=== PATIENT | female | born 1990 | race Caucasian/White ===

== ENCOUNTER 2019-11-12 21:26 | Inpatient (IN) | payer OTHER ==
[~2019-11-12] VITALS: Ht 172.7 cm; Wt 92.9 kg
[2019-11-12 22:24] VITALS: BP 133/75
[2019-11-12 22:25] LABS: HEMATOCRIT 38.1 % (36.0-47.0); HEMOGLOBIN 12.8 g/dl (12.0-15.5); MEAN CORPUSCULAR HEMOGLOBIN 30.3 pg (27.0-33.0); MEAN CORPUSCULAR HGB CONC 33.6 g/dl (32.0-36.5); MEAN CORPUSCULAR VOLUME 90.3 fl (80.0-96.0); PLATELET COUNT, AUTOMATED 186 10^3/uL (150-450); RED BLOOD COUNT 4.22 10^6/uL (4.00-5.40); WHITE BLOOD COUNT 12.3 10^3/uL (4.0-10.0)
[2019-11-12] MEDS ORDERED: PRENTAB9 PO (22:25)
[2019-11-12] MEDS ORDERED: OXYTOCIN 30 UNITS IN 0.9% NaCl 500ML IV BAG (J2590) As Ordered ONE (22:26)
[2019-11-12] MEDS ORDERED: LACTATED RINGER'S 1000 ML IV STA (22:28)
[2019-11-12] MEDS ORDERED: LR 1,000 ML IV SCH (22:28)
[2019-11-12 22:59] VITALS: BP 142/89
[2019-11-12 23:07] VITALS: BP 115/57
[2019-11-12 23:22] VITALS: BP 134/62
[2019-11-12 23:37] VITALS: BP 139/61
[2019-11-12] MEDS ORDERED: OXYTOCIN DRIP 30 UNITS in IV 1 EA IV SCH (23:40)
[2019-11-12] MEDS ORDERED: ACETAMINOPHEN TAB 650MG DOSE (2X325MG) PO PRN (23:45)
[2019-11-12] MEDS ORDERED: DIBUCAINE 1% OINTMENT 30GM TOP PRN (23:45)
[2019-11-12] MEDS ORDERED: MEASLES,MUMPS,RUBELLA VACCINE INJ (MMR-II) (90707) SC SCH (23:45)
[2019-11-12] MEDS ORDERED: ACETAMINOPHEN 500 MG TAB PO PRN (23:45)
[2019-11-12] MEDS ORDERED: RHOGAM 300 MCG (1500 IU) INJ (J2790) IM SCH (23:45)
[2019-11-12] MEDS ORDERED: DOCUSATE SODIUM 100 MG CAP PO PRN (23:45)
[2019-11-12] MEDS ORDERED: LIDOCAINE 1% MDV 20ML VIAL INFIL ONE (23:45)
--- NOTE | 2019-11-12 23:47 | DNPDOC ---
[facility] Delivery Note Delivery Note DATE OF DELIVERY: 12 Nov 2019 PREDELIVERY DIAGNOSIS: 38w3d gestation and labor. POST DELIVERY DIAGNOSIS: Delivered. 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 Felicitas Weldon MD ANESTHESIA: 1% lidocaine for repair ESTIMATED BLOOD LOSS: 250 mL. FINDINGS: 8 pound 13 ounce (4000g) male , Score 8/8 DELIVERY SUMMARY: Luz is a 29yo [id number] s/p uncomplicated at 22:53 on 11/12/19 after presenting to L&D in active labor at 38w3d. She was 8/C/-1 on admission, progressed without epidural, had AROM clear and immediately progressed to C/C/+1, at which time she began pushing. Infant's head delivered OA, restituted JERROD. Right anterior shoulder delivered with ease followed by posterior shoulder, then remainder of body delivered to maternal abdomen where infant was dried and stimulated; nose and mouth suctioned with bulb suction, strong, lusty cry, apgars 8/8. Terminal meconium noted. At 2 minutes of life, cord clamped x2 and cut by FOB. With uterine massage and traction on the cord, placenta delivered spontaneously and intact with 3 vessel centrally inserted cord. Pitocin bolus started with delivery of placenta. Fundus then firm at u-2cm with hemostasis noted. Upon inspection of vagina and perineum, small right labial laceration and a very small 2mll were noted and repaired with 3-0 vicryl suture in usual fashion. Good cosmetic effect with total reapproximation and complete hemostasis noted. All counts correct x2. Mom and were doing well when I left the room. MD Shiraz Reyes Katrina D MD November 12, 2019 23:43
[2019-11-12 23:52] VITALS: BP 135/60
--- NOTE | 2019-11-12 23:54 | HPEPDOC ---
Obstetrical History & Physical General Date of Admission November 12, 2019 at 21:55 History of Present Illness Luz is a 29yo with SIUP at 38w3d by LMP c/w 9wk u/s presenting for painful regular ctx that have been getting stronger and closer over the course of the day. No LOF, no vaginal bleeding, good movement. No f/c/n/v/CP/SOB. 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 Past Medical History Medical History Starting BMI 25.7 Surgical History: Other (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 ABDOMEN: Gravid and non-tender to touch. FETUS: Is vertex (VTX) by sterile vaginal examination (SVE) EXTREMITIES: No edema of BLE Laboratory Data 24H LABS Laboratory Tests 2 11/12/19 22:03: Serology Scanned Report Hepatitis B Testing 11/12/19 22:15: Nucleated Red Blood Cells % (auto) 0.0 CBC/BMP Laboratory Tests 11/12/19 22:15 Pertinent Laboratoy Data Blood Type: A+ RBC Antibody Screen: Negative HIV: Negative Hepatitis B: Negative Hepatitis C: Unknown Rapid Plasma Reagin: Nonreactive Rubella: Immune Varicella: Immune Chlamydia/Gonorrhea: Negative Group B Streptococcus: Negative Quad Screen Test: Negative Glucose Tolerance Test: 97 Anatomy Ultrasound Ultrasound Date: Jul 07, 2019 Placenta Location: Posterior Normal Anatomy: Yes Placenta Previa: No Steroid Therapy Steroid Therapy: No Vaginal Examination Dilation: 8 cm Effacement: 100% Station: -1, 0 Cervical Consistency: Soft Cervical Position: Anterior Presentation: Cephalic presentation Assessment Heart Rate (FHR): 150 Variability: Moderate Accelerations: Positive Decelerations: Variable Tocometer Contractions: Yes Frequency: regular, every 2-5 min. Duration: greater than 60 seconds Strength: palpated as strong Assessment/Plan Assessment Luz is a 29yo with SIUP at 38w3d by LMP c/w 9wk u/s in active labor with SCE 8/C/-1, ctx q3-5min. Cephalic. GBS negative. Vitals wnl, exam benign. Pelvis proven to 9+ pounds. Does not desire epidural. Excessive weight gain (41lb), starting BMI 25.7, history of precipitous elevator delivery in Apr 2018 Plan Admit and orient. Industrial Truck Driver and consent. Diet: clear liquids Group B Streptococcus (GBS) negative Labs and intravenous (IV) per unit protocol. Lactated Ringers (LR): Bolus 500 mL, then at 125 mL/hr. Anticipate normal spontaneous delivery () Safe to proceed MD Shiraz Reyes Katrina D MD November 12, 2019 22:41
[2019-11-13 00:39] VITALS: BP 127/64
[2019-11-13] MEDS: IBUPROFEN 800 MG TAB PO PRN ×2 (00:44→09:47)
[2019-11-13 01:20] VITALS: BP 113/60
[2019-11-13 06:00] VITALS: BP 119/63
[2019-11-13] MEDS: PRENATAL VITAMINS CHEWABLE TABLET PO SCH (09:00)
--- NOTE | 2019-11-13 09:50 | IPNPDOC ---
Progress Note Date of Service: November 13, 2019 Day#: 1 Progress Note PPD 1 SUBJECT: Luz is a 29yo [id number] s/p uncomplicated at 38w3d on 11 November at 22:53 after presenting in active labor, doing well day # 1. She has been ambulating, voiding spontaneously without issue and tolerating regular diet. Breast feeding without issue. Minimal discomfort. Reports lochia is like a normal period. No lightheadedness/dizziness, f/c/n/v/CP/SOB. OBJECTIVE: VITAL SIGNS: Within normal limits, afebrile. Alert and oriented times three. Abdomen: Fundus firm at U-2. Soft, NTTP. Extremities: trace edema of BLE, no pain with palpation of calves ASSESSMENT: Luz is a 29yo [id number] s/p uncomplicated at 38w3d on 11 November at 22:53 after presenting in active labor, doing well day # 1. Vitals within normal limits, afebrile, hemodynamically stable with no evidence of infection. PLAN: 1. Routine care 2. Tylenol and Motrin for pain. 3. Encourage breast feeding and ambulation. 4. Regular diet 5. Possible discharge tomorrow if meeting all milestones Dr. Felicitas Weldon MD VS, I&O, 24H, [facility] Vital Signs/I&O Vital Signs Date Time Temp Pulse Resp B/P (MAP) Pulse Ox O2 Delivery O2 Flow Rate FiO2 11/13/19 06:00 97.6 89 16 119/63 (81) 97 Room Air I&O- Last 24 Hours up to 6 AM 11/13/19 06:00 Intake Total 650 ml Output Total 850 ml Balance -200 ml Laboratory Data 24H LABS Laboratory Tests 2 11/12/19 22:03: Serology Scanned Report Hepatitis B Testing 11/12/19 22:15: Nucleated Red Blood Cells % (auto) 0.0 CBC/BMP Laboratory Tests 11/12/19 22:15 Felicitas Weldon MD November 13, 2019 09:50
[2019-11-13 18:25] VITALS: BP 128/74
[2019-11-14] MEDS: IBUPROFEN 600 MG TAB PO PRN ×2 (01:30→07:40)
[2019-11-14 06:00] VITALS: BP 107/67
[2019-11-14] MEDS ORDERED: DIBU10OI TOP (06:45)
[2019-11-14] MEDS ORDERED: DOCU100C16 PO (06:45)
[2019-11-14] MEDS ORDERED: IBUP80TA PO (06:45)
[2019-11-14] MEDS: PRENATAL VITAMINS CHEWABLE TABLET PO SCH (07:40)
--- NOTE | 2019-11-15 17:22 | DSES ---
DATE OF ADMISSION: 11/12/2019 DATE OF DISCHARGE: 11/14/2019 This lady is 29-year-old 3, now para 3, admitted at 38 and 3 weeks of gestation with contractions. She had a spontaneous vaginal delivery of a live- male infant, 8 pounds 13 ounces, 4000 grams, scores of 8 and 8 at one and five minutes, respectively. She had a first-degree tear oversewn in the usual fashion with lidocaine. On her second day we discussed phlebitis, cystitis, mastitis, metritis, cellulitis, diet, exercise, pain management, and perineal and breast care. On discharge, her blood pressure 107/67, respirations 16, pulse 73, temperature 96.8. Her hemoglobin was 12.8, hematocrit 38.1, and platelets 186. In summary, we have a term gestation, delivered a live- male infant. Will picker and sorter load and unload her medications at [place]. Has an appointment with pediatrics for her baby and will make a 6-week checkup at [facility].
--- NOTE | 2019-11-16 04:43 | IPN ---
DATE: 11/13/2019 This patient requested circumcision of her male after discussing risks and benefits of circumcision, the medical nonmedical indications, penile block, and aftercare. Expressed understanding of penile block, aftercare, and bleeding. Signed the consent form. All questions were answered. 20-minute discussion. We await clearance by the research microbiologist.
== END 2019-11-14 12:00 | disposition home or self-care (01) | DRG 807 ==
LOC: M LDO 21:26 → M LDI 21:55 → M PED 11-13 01:07
PROVIDERS: ADMIT Obstetrics & Gynecology; ATTEND Obstetrics & Gynecology
PROC: 10E0XZZ Delivery of Products of Conception, External Approach (ICD-10-PCS; principal; 2019-11-12)
PROC: 0KQM0ZZ Repair Perineum Muscle, Open Approach (ICD-10-PCS; 2019-11-12)
PROC: 10907ZC Drainage of Amniotic Fluid, Therapeutic from Products of Conception, Via Natural or Artificial Opening (ICD-10-PCS; 2019-11-12)
DX: O70.1 Second degree perineal laceration during delivery (principal); Z37.0 Single live birth; Z3A.38 38 weeks gestation of pregnancy

== ENCOUNTER → 2021-05-09 | Outpatient (CLI) | payer OTHER ==
[~2021-05-09] MED LIST: DIBU28OI2 TOP; DOCU100C16 PO; IBUP80TA PO; PRENTAB9 PO
--- NOTE | 2021-05-09 16:38 | REP ---
INDICATION: PREG, LGA-GROWTH. COMPARISON: None. TECHNIQUE: Real-time sonographic evaluation of the gravid uterus performed. FINDINGS: Estimated gestational age is37 weeks 1 day, EDC 05/29/2021. Today's measurements indicate appropriate growth. Presentation: Cephalic Placenta anterior, grade 1, without evidence of placenta previa. heart rate is recorded at 138 beats per minute. Amniotic fluid is subjectively normal. DIONE 12.4, normal 7.5-24.4. SD ratio umbilical artery 2.80, normal 1.59-3.42. RI 0.64, normal 0.43-0.70. Closed cervical length is measured at 3.3 cm. Biometry chart: BPD: 91 mm, 36 weeks 5 days, 45th percentile. HC: 331 mm, 37 weeks 5 days, 61st percentile AC: 339 mm, 37 weeks 5 days, 60th percentile Femur length: 77 mm, 39 weeks 1 days, 79th percentile HC to AC ratio: 0.98, normal range 0.91-1.10. Estimated weight: 3357g, 78th percentile. anatomy: Cranium: Grossly normal Lateral Ventricles/Choroid Plexus: Grossly normal Posterior Fossa/Cerebellum: Not well visualized. Nose/lips/profile: Grossly normal Four chamber heart: Grossly normal Right ventricular outflow tract: Not well visualized. Left ventricular outflow tract: Grossly normal Left-sided stomach: Grossly normal Kidneys: Grossly normal Bladder: Grossly normal Cord Insertion: Grossly normal 3 vessel cord: Grossly normal Spine: Grossly normal IMPRESSION: Viable single intrauterine gestation as above. <Electronically signed by Jaden Means > 05/09/21 0810
== END ==
LOC: M RAD 11:07
PROVIDERS: ATTEND Registered Nurse Maternal Newborn
DX: O36.63X0 Maternal care for excessive fetal growth, third trimester, not applicable or unspecified (principal); Z3A.36 36 weeks gestation of pregnancy

== ENCOUNTER 2021-05-25 11:02 | Inpatient (IN) | payer OTHER ==
[~2021-05-25] VITALS: Ht 203.2 cm; Wt 95.1 kg
[2021-05-25] VITALS (17 sets, daily range): BP systolic 107–137; BP diastolic 51–82
[2021-05-25] MEDS ORDERED: HOME MED LIST COMPLETE! XX SCH ×2 (11:25)
[2021-05-25] MEDS ORDERED: LACTATED RINGER'S 1000 ML IV STA (11:38)
--- OUTSIDE RECORDS SUMMARY | 2021-05-25 11:39 | CCD ---
Author Author [facility] Address Unknown Phone Unavailable Support Name Relationship Address Phone UE Next Of Kin Unknown Unavailable LIZ SILVA Next Of Kin [address], [place] [id number] GIOVANNA JONES Next Of Kin [id number] [place], [place] [id number] Re-disclosure Warning The records that you are about to access may contain information from federally-assisted alcohol or drug abuse programs. If such information is present, then the following federally mandated warning applies: This information has been disclosed to you from records protected by federal confidentiality rules (42 CFR part 2). The federal rules prohibit you from making any further disclosure of this information unless further disclosure is expressly permitted by the written consent of the person to whom it pertains or as otherwise permitted by 42 CFR part 2. A general authorization for the release of medical or other information is NOT sufficient for this purpose. The Federal rules restrict any use of the information to criminally investigate or prosecute any alcohol or drug abuse patient.The records that you are about to access may contain highly sensitive health information, the redisclosure of which is protected by Article 27-F of the [place] Public Health law. If you continue you may have access to information: Regarding HIV / AIDS; Provided by facilities licensed or operated by the [place] Office of Mental Health; or Provided by the [place] Office for People With Developmental Disabilities. If such information is present, then the following [place] [facility] mandated warning applies: This information has been disclosed to you from confidential records which are protected by state law. State law prohibits you from making any further disclosure of this information without the specific written consent of the person to whom it pertains, or as otherwise permitted by law. Any unauthorized further disclosure in violation of state law may result in a fine or alf sentence or both. A general authorization for the release of medical or other information is NOT sufficient authorization for further disc losure. Immunizations Vaccine Date Status Description Data Source(s) COVID-19 VACCINE Pfizer 09/26/2020 12:00:00 AM EDT completed [facility] Vaccine Series Complete: NOThis Data was Submitted to [facility] Via [employer]. Medications No Information Insurance Providers Payer name Policy type / Coverage type Policy ID Covered republican ID Covered republican's relationship to solo Policy Solo Plan Information [facility] [id number] [place] [id number] [facility] [id number] [place] [id number] Problems, Conditions, and Diagnoses No Information Surgeries/Procedures No Information Results No Information Social History No Information
[2021-05-25] MEDS ORDERED: OXYTOCIN DRIP 30 UNITS in IV 1 EA IV PRN (11:40)
[2021-05-25] MEDS ORDERED: LIDOCAINE 1% MDV 20ML VIAL INFIL PRN (11:40)
[2021-05-25] MEDS ORDERED: LR 1,000 ML IV SCH (11:40)
[2021-05-25 12:08] LABS: HEMATOCRIT 40.4 % (36.0-47.0); HEMOGLOBIN 13.3 g/dl (12.0-15.5); MEAN CORPUSCULAR HEMOGLOBIN 30.1 pg (27.0-33.0); MEAN CORPUSCULAR HGB CONC 32.9 g/dl (32.0-36.5); MEAN CORPUSCULAR VOLUME 91.4 fl (80.0-96.0); PLATELET COUNT, AUTOMATED 178 10^3/uL (150-450); RED BLOOD COUNT 4.42 10^6/uL (4.00-5.40)
[2021-05-25] MEDS ORDERED: FENTANYL 2MCG/ML ROPIVACAINE 0.2% IN 0.9% NACL 100ML IVBAG As Ordered ONE (13:06)
--- NOTE | 2021-05-25 13:09 | HPEPDOC ---
Obstetrical History & Physical General Date of Admission May 25, 2021 at 11:34 History of Present Illness 31 yo at 39+3 weeks gestation by 18+0 week US with NIDHI [id number] presented to L&D with the complaint of worsening contractions. She has a history of precipitous deliveries any didn't even make it to the delivery room with her last two deliveries. She denies any bleeding or leakage of fluid. She endorses regular movement. Chief Complaint: Contractions, term Information Provided By: Patient Age: 31 : 4 Term: 3 Pre-term: 0 Abortions: 0 Livin Care Care: Good Care Dating Final EDC: May 29, 2021 Final EDC for Daily Update: May 29, 2021 Final EDC by: 2nd trimester (US) (18+0 week US (late to care) set NIDHI of [id number] (irregular period with )) Antepartum Course Diagnos(e)s Short interval Initial concern for large for gestational age ---> Most recent growth scan on 05/09/21 had baby in the 78th percentile by weight. Past Medical History Past Obstetrical History : Past Obstetrical History: Multigravida (Term X3. Precipitous deliveries. 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 Past Medical History Medical History Denies Surgical History: Other (Left oophorectomy) Family History Significant Family History: No pertinent family hx Social History Marital Status: Family situation: Spouse/partner home Psychosocial History: No pertinent psych hx * Smoker: non-smoker Alcohol: Denies Drugs: denies Imunizations Tdap status: current Influenza Status: needs Allergies Coded Allergies: No Known Allergies (Unverified , 11/12/19) Medications Scheduled No.137/Iron/Folic Acd ( Vitamin Tablet) 1 Each Tablet, 1 TAB PO DAILY Physical Examination Physical Examination GENERAL: Alert and oriented times three. ABDOMEN: Gravid and non-tender to touch. FETUS: Is vertex (VTX) by sterile vaginal examination (SVE) EXTREMITIES: No edema. Vital Signs/I&O Vital Signs Date Time Temp Pulse Resp B/P (MAP) Pulse Ox O2 Delivery O2 Flow Rate FiO2 05/25/21 12:12 100 18 127/73 (91) 05/25/21 11:20 98.1 Laboratory Data 24H LABS Laboratory Tests 2 05/25/21 11:40: Serology Scanned Report Hepatitis B Testing 05/25/21 11:56: Nucleated Red Blood Cells % (auto) 0.0 CBC/BMP Laboratory Tests 05/25/21 11:56 Urine Culture: No Growth Pertinent Laboratoy Data Blood Type: A+ RBC Antibody Screen: Negative HIV: Negative Hepatitis B: Negative Hepatitis C: Unknown Rapid Plasma Reagin: Nonreactive Rubella: Immune Varicella: Immune Chlamydia/Gonorrhea: Negative Group B Streptococcus: Negative Quad Screen Test: Negative Cystic Fibrosis: Unknown Glucose Tolerance Test: 50 Anatomy Ultrasound Placenta Location: Anterior Normal Anatomy: Yes Placenta Previa: No Steroid Therapy Steroid Therapy: No Vaginal Examination Dilation: 4 cm Effacement: 90% Station: -1 Cervical Consistency: Soft Cervical Position: Middle Presentation: Cephalic presentation Position: Vertex (occiput) Assessment Heart Rate (FHR): 140 Variability: Moderate Accelerations: Positive Decelerations: None Tocometer Contractions: Yes Frequency: irregular Assessment/Plan Assessment 31 yo at 39+3 weeks gestation presented to L&D in early labor. Plan Admit for expectant management of labor. Will augment as clinically indicated. Apply IV fluids. Labs per L&D protocol. Clear liquid diet. GBS negative. Patient may have epidural if desired. Anticipate . Labor and Delivery Counseling Vaginal delivery / Operative vaginal delivery / C section counseling We will deliver your baby through the vagina with possible assistance of forceps or vacuum device if needed for maternal or indications. Forceps and vacuum are devices that can assist with vaginal delivery when normal pushing efforts cannot achieve delivery on their own or when delivery is needed in an emergency for baby's well-being. Medications may be required to induce or augment (help) your labor in order to achieve a vaginal delivery. An episiotomy may be required to help your baby to delivery vaginally. You may also require repair of any lacerations or tears of your vagina or vulva that are caused by delivery. In some cases, emergencies can occur that require an emergency section delivery so quickly that there may not be enough time to stop and complete consent forms for section. Understand that if this occurs, your providers will discuss the need for a section with you before they proceed with surgery. section is the delivery of your baby through an incision in your abdomen. In some situations, section may be safer to mom and baby than continuing labor and is only performed when clinically indicated. Risks of vaginal delivery include but are not limited to: Bleeding, infection, injury to the vagina, pelvic structures, injury to baby, damage to the uterus, reactions to anesthesia, uterine rupture, risk of hysterectomy for life threatening bleeding, or . Medications used to induce or augment labor may increase your risk for infection, uterine tachysystole, uterine rupture, heart rate abnormalities, need for emergency delivery or possible hysterectomy, and hemorrhage. Additional risks for use of forceps and vacuum include: increased risk of perineal and vaginal lacerations, risk of urinary or bowel incontinence, increased risk of injury to baby with bruising, scratches, hematomas on the head, or intracranial bleeding. Ms. Mayfield appears to understand these risks and elects to proceed with her labor at this location. She also consents to a blood transfusion if necessary. All questions answered. Doug Erickson DO, DOUG GÓMEZ DO May 25, 2021 13:09
[2021-05-25] MEDS ORDERED: NALOXONE INJ 0.4MG/1ML VIAL (J2310 PER 1MG) IV PRN (13:45)
[2021-05-25] MEDS ORDERED: ePHEDrine SULFATE 25 MG/5 ML(5MG/ML) SYRINGE IV PRN (13:45)
[2021-05-25] MEDS ORDERED: ONDANSETRON 4MG/2ML VIAL IV PRN (13:45)
[2021-05-25] MEDS ORDERED: EPIDURAL/PCA KEYS XX PRN (13:45)
[2021-05-25] MEDS ORDERED: diphenhydrAMINE 50MG/ML VIAL (J1200) IV PRN (13:45)
[2021-05-25] MEDS ORDERED: REFRIGERATOR IV KEYS XX PRN (13:45)
[2021-05-25] MEDS ORDERED: EPIDURAL COMMENT XX SCH (13:45)
[2021-05-25] MEDS ORDERED: FENTANYL/ROPIVACAINE/NACL BAG 100 ML EPIDURAL SCH (13:45)
--- NOTE | 2021-05-25 14:33 | IPNPDOC ---
Text Note Date of Service The patient was seen on 05/25/21. NOTE Patient reported her water broke. She is comfortable with an epidural in place. Cervix: 8/C/0. FHR Cat I. Patient progressing well on her own power. Anticipate beginning of 2nd stage soon. Dre VS,Kory, I+O VS, Kory, I+O Laboratory Tests 05/25/21 11:56 Vital Signs Date Time Temp Pulse Resp B/P (MAP) Pulse Ox O2 Delivery O2 Flow Rate FiO2 05/25/21 14:19 88 18 137/64 (88) 05/25/21 13:23 98.0 DOUG THOMPSON DO May 25, 2021 14:33
[2021-05-25] MEDS ORDERED: OXYTOCIN 30 UNITS IN 0.9% NaCl 500ML IV BAG (J2590) As Ordered ONE (14:39)
[2021-05-25] MEDS ORDERED: MEASLES,MUMPS,RUBELLA VACCINE INJ (MMR-II) (90707) SC SCH (15:15)
[2021-05-25] MEDS ORDERED: PROMETHAZINE 25 MG TAB PO PRN (15:15)
[2021-05-25] MEDS ORDERED: RHOGAM 300 MCG (1500 IU) INJ (J2790) IM SCH (15:15)
[2021-05-25] MEDS ORDERED: OXYTOCIN DRIP 30 UNITS in IV 1 EA IV SCH (15:15)
[2021-05-25] MEDS ORDERED: ACETAMINOPHEN 500 MG TAB PO PRN (15:15)
[2021-05-25] MEDS ORDERED: ACETAMINOPHEN TAB 650MG DOSE (2X325MG) PO PRN (15:15)
[2021-05-25] MEDS ORDERED: DIBUCAINE 1% OINTMENT 30GM TOP PRN (15:15)
--- NOTE | 2021-05-25 15:24 | DNPDOC ---
[facility] Delivery Note Delivery Note DATE OF DELIVERY: 25May2021 at ~1500 PREDELIVERY DIAGNOSIS: 39+3 weeks gestation and active labor POST DELIVERY DIAGNOSIS: Delivered PROCEDURE: Spontaneous vaginal delivery LICENSED CLINICAL PSYCHOLOGIST: Dr. Erickson ANESTHESIA: Epidural ESTIMATED BLOOD LOSS: 200 mL. FINDINGS: Pending weight, female , Score 9 DELIVERY SUMMARY: Luz is a 31 yo G4 now P4 who was admitted for active labor. She received an epidural, her membranes spontaneously ruptured, and she progressed quickly into 2nd stage. With excellent effort her delivered after about 15 minutes of pushing. Presentation was JERROD with restitution to LOT. The right anterior shoulder delivered with gentle traction followed easily by the remainder of the body. The was dried and stimulated on the field and a bulb suction was used. The baby cried vigorously and was placed on the maternal abdomen. The three vessel cord was then clamped and cut by the FOB after appropriate time delay and under my direction. 3rd stage was completed with gentle traction on the cord and it was productive of an intact placenta. The uterus was firmed with massage and pitocin was administered IV bolus. Inspection of the cervix, vagina, perineum, and labia revealed a small perineal laceration. This laceration was repaired with 3-0 vicyrl suture in the usual fashion. There was excellent cosmesis and hemostasis after the repair. The fundus was palpated again and was confirmed to be firm. Sponge, instrument, and needle counts were correct X3. Mother and stable when I left the room. DOUG Robles DO May 25, 2021 15:24
[2021-05-25] MEDS: IBUPROFEN 600MG TAB PO PRN (21:00)
[2021-05-25] MEDS: DOCUSATE SODIUM 100MG CAPSULE PO PRN (21:00)
[2021-05-26 05:58] VITALS: BP 129/82
--- NOTE | 2021-05-26 07:12 | IPNPDOC ---
Progress Note Date of Service: May 26, 2021 Progress Note 31 yo G4 now P4 PPD#1 s/p uncomplicated yesterday afternoon after being admitted for active labor. No issues overnight. Luz reports feeling well this morning. She is ambulating, voiding, tolerating a regular diet. Lochia is minimal. Pain is well controlled. Vitals - VSS, afebrile, normotensive, non tachycardic General - AAOX3, sitting up in bed, pleasant and conversant, NAD Abdomen - Fundus firm at U-1. No fundal tenderness Extremities - No edema UO - appropriate Luz is doing well and is making an appropriate recovery. No issues. Discharge home tomorrow when baby is cleared by peds. All questions answered. Dre VS, I&O, 24H, Kory Vital Signs/I&O Vital Signs Date Time Temp Pulse Resp B/P (MAP) Pulse Ox O2 Delivery O2 Flow Rate FiO2 05/26/21 05:58 96.6 97 18 129/82 (98) 05/25/21 17:51 95 Room Air I&O- Last 24 Hours up to 6 AM 05/26/21 05:59 Intake Total 1500 ml Output Total 850 ml Balance 650 ml Laboratory Data 24H LABS Laboratory Tests 2 05/25/21 11:40: Serology Scanned Report Hepatitis B Testing 05/25/21 11:56: Nucleated Red Blood Cells % (auto) 0.0 CBC/BMP Laboratory Tests 05/25/21 11:56 DOUG THOMPSON DO May 26, 2021 07:12
[2021-05-26] MEDS: PRENATAL VITAMINS CHEWABLE TABLET PO SCH (08:09)
[2021-05-26] MEDS: IBUPROFEN 800 MG TAB PO PRN (13:07)
[2021-05-26 18:00] VITALS: BP 120/61
[2021-05-26] MEDS: DOCUSATE SODIUM 100MG CAPSULE PO PRN (20:30)
[2021-05-26] MEDS: IBUPROFEN 600MG TAB PO PRN (21:00)
[2021-05-27] MEDS ORDERED: ACET1TAB55 PO (03:22)
[2021-05-27] MEDS ORDERED: IBUP-1022 PO (03:22)
[2021-05-27] MEDS ORDERED: COLA100C5 PO (03:22)
[2021-05-27 06:00] VITALS: BP 127/72
--- NOTE | 2021-05-27 06:38 | OBDS ---
[facility] Obstetrical Discharge Sum. Obstetrical Discharge Summary Pricing/Signage Team Member/Provider: STACY SMITH DO Date: May 27, 2021 Time: 03:14 : 4 Term: 4 Pre-term: 0 Abortions: 0 Livin VDRL: Non-Reactive Rh: Positive Rubella: Immune Labor uncomplicated Delivery normal spontaneous vaginal delivery Sex: Female Weight: pounds (7), ounces (15) Anesthesia: Regional Anesthesia A/P, Post Course List any complications Admission diagnosis: labor at term. Discharge diagnosis: normal spontaneous vaginal delivery Condition at Discharge: good Discharge Instructions: Home Activity: as tolerated Diet: regular Medications: at [place] Follow-up: 6 weeks at [facility] Other: Day of discharge exam: a&ox3 nonlabored breathing abd nontender nondistended fundus firm negative calf tenderness bilaterally desires minipill for contraception, will order for STACY Lopez DO May 27, 2021 03:18
[2021-05-27] MEDS: PRENATAL VITAMINS CHEWABLE TABLET PO SCH (09:00)
[2021-05-27] MEDS: IBUPROFEN 800 MG TAB PO PRN (10:02)
== END 2021-05-27 12:05 | disposition home or self-care (01) | DRG 807 ==
LOC: M LDO 11:02 → M LDI 11:34 → M OBS 17:00
PROVIDERS: ADMIT Obstetrics & Gynecology; ATTEND Obstetrics & Gynecology
PROC: 10E0XZZ Delivery of Products of Conception, External Approach (ICD-10-PCS; principal; 2021-05-25)
PROC: 0HQ9XZZ Repair Perineum Skin, External Approach (ICD-10-PCS; 2021-05-25)
DX: O70.0 First degree perineal laceration during delivery (principal); Z37.0 Single live birth; Z3A.39 39 weeks gestation of pregnancy